=== PATIENT | female | born 1990 | race Caucasian/White ===

== ENCOUNTER 2023-02-18 13:51 | Emergency (ER) | payer OTHER ==
[~2023-02-18] VITALS: Ht 156.2 cm; Wt 60.3 kg
[2023-02-18 14:22] VITALS: BP 115/72; PULSE 100; RESP 20; TEMP 99.4; O2SAT 96
[2023-02-18] MEDS ORDERED: ALBU0.0912 INH (15:03)
[2023-02-18] MEDS ORDERED: BENZ100C6 PO (15:03)
[2023-02-18] MEDS ORDERED: IBUP-2213 PO (15:03)
[2023-02-18] MEDS ORDERED: SUD30 PO (15:03)
[2023-02-18 15:53] LABS: FLU A ANTIGEN negative (NEGATIVE); FLU B ANTIGEN NEGATIVE (NEGATIVE)
== END 2023-02-18 15:16 | disposition home or self-care (01) ==
LOC: MED 13:51
DX: J06.9 Acute upper respiratory infection, unspecified (principal); Z20.822 Contact with and (suspected) exposure to COVID-19; Z79.899 Other long term (current) drug therapy; Z79.1 Long term (current) use of non-steroidal anti-inflammatories (NSAID)
CPT/HCPCS: 99283